=== PATIENT | male | born 1985 | race Caucasian/White ===

== ENCOUNTER 2025-05-25 22:18 | Emergency (ER) | payer OTHER ==
[~2025-05-25] VITALS: Ht 180.3 cm; Wt 98.0 kg
[2025-05-25 22:23] VITALS: O2SAT 99
[2025-05-26] MEDS: KETOROLAC 15MG/ML VIAL IM ONE (00:09)
[2025-05-26] MEDS: LIDOCAINE 5% PATCH TOP SCH (00:10)
[2025-05-26] MEDS ORDERED: NAPR-1176 MT (01:01)
[2025-05-26 01:17] VITALS: BP 150/98; PULSE 78; RESP 16; TEMP 36.8; O2SAT 97
== END 2025-05-26 01:19 | disposition home or self-care (01) ==
LOC: ER 22:18
DX: M25.519 Pain in unspecified shoulder (principal); Z98.890 Other specified postprocedural states
CPT/HCPCS: 99283; 71045; 93005; 96372; J1885